=== PATIENT | female | born 1960 | race Caucasian/White ===

== ENCOUNTER → 2017-02-21 | Outpatient (REF) | payer BC ==
[~2017-02-21] MED LIST: /TAMS4CA PO; CIPR500T89 PO; GLUC500T PO; LEVE1INJ5 SC; METF500T PO; OXYC-517 PO; PERC2.5T PO; SIMV20TA2 PO; ULTR50TA PO; VICT18IN SC; ZANTTAB PO; [UNRECOGNIZED DRUG - CODE] PO
== END ==
LOC: M SFHCLERA 11:36
PROVIDERS: ATTEND Physician Assistant
DX: K22.70 Barrett's esophagus without dysplasia (principal); E78.2 Mixed hyperlipidemia; Z53.8 Procedure and treatment not carried out for other reasons

== ENCOUNTER → 2017-03-15 | Outpatient (CLI) | payer BC ==
--- NOTE | 2017-03-15 10:23 | REPMRS ---
Patient History The patient states she has not had a clinical breast exam in over a year. Patient is postmenopausal. No known family history of cancer. Digital Woman Screen Mammo: March 15, 2017 - Exam #: [id number] Bilateral CC and MLO view(s) were taken. Technologist: Celestina Guadalupe, Technologist Prior study comparison: March 23, 2015, digital woman screen mammo performed at [facility]. June 13, 2013, digital woman screen mammo performed at [facility] to [facility]. FINDINGS: The breast tissue is heterogeneously dense. This may lower the sensitivity of mammography. There has been no change in the appearance of the mammogram from the prior studies. There is a moderate amount of residual fibroglandular tissue which is fairly symmetric. There is no interval development of dominant mass, areas of architectural distortion, or clustered microcalcification typical of malignancy. ASSESSMENT: BI-RADS/ACR category 1 mammogram. Negative. Recommendation Routine screening mammogram in 1 year (for women over age 40). This mammogram was interpreted with the aid of an FDA-approved computer-aided dectection system. Electronically Signed By: Sean Raya MD 03/15/17 1798
== END ==
LOC: M WHC 09:39
PROVIDERS: ATTEND Physician Assistant
DX: Z12.31 Encounter for screening mammogram for malignant neoplasm of breast (principal)

== ENCOUNTER → 2018-11-23 | Outpatient (REF) | payer BC ==
[~2018-11-23] MED LIST changes: -/TAMS4CA PO; +FLOM0.4C39 PO
[2018-11-28 14:34] LABS: HPV LOW VOL RFLX Positive (Negative)
== END ==
LOC: M LAB REF 13:40
PROVIDERS: ATTEND Advanced Practice Midwife
DX: Z12.4 Encounter for screening for malignant neoplasm of cervix (principal)
CPT/HCPCS: 87624; G0123

== ENCOUNTER → 2019-07-31 | Outpatient (REF) | payer BC ==
[~2019-07-31] MED LIST changes: +ZANT150T40 PO; -ZANTTAB PO
== END ==
LOC: M SFHCPLAZ 09:38
PROVIDERS: ATTEND Family Medicine
DX: E11.9 Type 2 diabetes mellitus without complications (principal); E78.5 Hyperlipidemia, unspecified

== ENCOUNTER → 2019-12-02 | Outpatient (REF) | payer BC ==
[2019-12-02 15:33] LABS: MALB URINE SIEMENS 24.2 MG/L; MAU/CREAT RATIO 12.2 MCG/MG (0.0-30.0)
[2019-12-02 17:14] LABS: HEMOGLOBIN A1c 8.2 %
== END ==
LOC: M SFHCPLAZ 11:15
PROVIDERS: ATTEND Family Medicine
DX: E11.9 Type 2 diabetes mellitus without complications (principal); E78.5 Hyperlipidemia, unspecified

== ENCOUNTER 2021-08-03 20:02 | Emergency (ER) | payer BC, SELFPAY ==
[~2021-08-03] VITALS: Ht 160 cm; Wt 76.4 kg
[2021-08-03 21:44] LABS: VENOUS BASE EXCESS 3.5 (-2.0-2.0); VENOUS HCO3 28.9 MEQ/L (23.0-27.0); VENOUS O2 SATURATION 78.1 % (60.0-80.0); VENOUS PARTIAL PRESSURE CO2 46.5 mmHg (38.0-50.0); VENOUS PARTIAL PRESSURE O2 41.7 mmHg (30.0-50.0); VENOUS PH 7.411 UNITS (7.330-7.430); VENOUS STANDARD HCO3 27.1 MEQ/L; VENOUS TOTAL CO2 30.3 MEQ/L (24.0-28.0)
[2021-08-03 21:49] LABS: BASO # 0.1 10^3/uL (0.0-0.2); BASO % 0.8 % (0.0-1.0); EOS # 0.1 10^3/uL (0.0-0.5); EOS % 1.5 % (0.0-3.0); HEMATOCRIT 41.8 % (36.0-47.0); HEMOGLOBIN 13.4 g/dl (12.0-15.5); LYMPH # 2.6 10^3/uL (1.5-5.0); LYMPH % 30.8 % (24.0-44.0); MEAN CORPUSCULAR HEMOGLOBIN 28.1 pg (27.0-33.0); MEAN CORPUSCULAR HGB CONC 32.1 g/dl (32.0-36.5); MEAN CORPUSCULAR VOLUME 87.6 fl (80.0-96.0); MONO # 0.6 10^3/uL (0.0-0.8); MONO % 6.5 % (2.0-8.0); NEUTROPHILS # 5.1 10^3/uL (1.5-8.5); PLATELET COUNT, AUTOMATED 303 10^3/uL (150-450); RED BLOOD COUNT 4.77 10^6/uL (4.00-5.40); WHITE BLOOD COUNT 8.6 10^3/uL (4.0-10.0)
[2021-08-03 22:13] LABS: ACETONE/KETONE 0.86 MG/DL (<2.81); ALBUMIN 3.3 GM/DL (3.2-5.2); ALT/SGPT 27 U/L (12-78); BILIRUBIN,DIRECT < 0.1 MG/DL (0.0-0.2); BILIRUBIN,TOTAL 0.3 MG/DL (0.2-1.0); BLOOD UREA NITROGEN 13 MG/DL (7-18); CARBON DIOXIDE LEVEL 30 MEQ/L (21-32); CHLORIDE LEVEL 107 MEQ/L (98-107); CREATININE FOR GFR 1.21 MG/DL (0.55-1.30); GLOMERULAR FILTRATION RATE 48.2 (>45); GLUCOSE, FASTING 185 MG/DL (70-100); LIPASE 300 U/L (73-393); POTASSIUM SERUM 4.3 MEQ/L (3.5-5.1); SODIUM LEVEL 140 MEQ/L (136-145); TOTAL PROTEIN 7.4 GM/DL (6.4-8.2)
[2021-08-03 22:16] LABS: HEMOGLOBIN A1c 8.3 %
[2021-08-03 22:18] LABS: OSMOLALITY SERUM 299 MOSM/KG (280-301)
[2021-08-03 23:31] VITALS: BP 123/74
[2021-08-04 00:21] LABS: CK-MB VALUE MASS < 1.0 NG/ML (<3.6); CPK CREATINE PHOSPHOKINASE 84 U/L (26-192); MB/CK RELATIVE INDEX 1.19 (< OR =4)
[2021-08-04] MEDS ORDERED: ONDANSETRON 4MG/2ML VIAL IV ONE (02:00)
[2021-08-04] MEDS ORDERED: NS 1,000 ML IV ONE (02:00)
[2021-08-04] MEDS ORDERED: MORPHINE 4 MG/ML 1ML VIAL/SYRINGE (J2270) IV ONE (02:00)
[2021-08-04] MEDS ORDERED: ISOVUE-370 76% 100ML VIAL As Ordered ONE (02:05)
== END 2021-08-04 03:30 | disposition home or self-care (01) ==
LOC: M ED 20:02
DX: E11.65 Type 2 diabetes mellitus with hyperglycemia (principal); N20.0 Calculus of kidney; K52.9 Noninfective gastroenteritis and colitis, unspecified; R10.13 Epigastric pain; R11.2 Nausea with vomiting, unspecified; K76.0 Fatty (change of) liver, not elsewhere classified; J98.11 Atelectasis; R59.0 Localized enlarged lymph nodes; Z79.899 Other long term (current) drug therapy
CPT/HCPCS: 74021; 74177; 80048; 80076; 82010; 82550; 82553; 82803; 83036; 83690; 83930; 84484; 85025; 93005; 96361; 96374; 96375; 99284; J2270; J2405; Q9967

== ENCOUNTER → 2021-09-27 | Outpatient (CLI) | payer BC ==
[2021-09-27 14:55] LABS: BASO # 0.1 10^3/uL (0.0-0.2); BASO % 0.9 % (0.0-1.0); EOS # 0.2 10^3/uL (0.0-0.5); EOS % 2.4 % (0.0-3.0); HEMATOCRIT 42.6 % (36.0-47.0); HEMOGLOBIN 13.7 g/dl (12.0-15.5); LYMPH # 1.9 10^3/uL (1.5-5.0); LYMPH % 28.8 % (24.0-44.0); MEAN CORPUSCULAR HEMOGLOBIN 28.5 pg (27.0-33.0); MEAN CORPUSCULAR HGB CONC 32.2 g/dl (32.0-36.5); MEAN CORPUSCULAR VOLUME 88.6 fl (80.0-96.0); MONO # 0.5 10^3/uL (0.0-0.8); MONO % 7.1 % (2.0-8.0); NEUTROPHILS % 60.3 % (36.0-66.0); PLATELET COUNT, AUTOMATED 283 10^3/uL (150-450); RED BLOOD COUNT 4.81 10^6/uL (4.00-5.40); WHITE BLOOD COUNT 6.6 10^3/uL (4.0-10.0)
[2021-09-27 15:08] LABS: ALBUMIN 3.6 GM/DL (3.2-5.2); ALT/SGPT 25 U/L (12-78); BILIRUBIN,TOTAL 0.4 MG/DL (0.2-1.0); BLOOD UREA NITROGEN 15 MG/DL (7-18); CALCIUM LEVEL 9.7 MG/DL (8.8-10.2); CARBON DIOXIDE LEVEL 28 MEQ/L (21-32); CHLORIDE LEVEL 107 MEQ/L (98-107); CHOLESTEROL LEVEL 292 MG/DL (<200); CHOLESTEROL RISK RATIO 3.476 (<5); CREATININE FOR GFR 0.78 MG/DL (0.55-1.30); FREE T4 0.88 NG/DL (0.76-1.46); GLOMERULAR FILTRATION RATE > 60.0 (>45); GLUCOSE, FASTING 158 MG/DL (70-100); HDL CHOLESTEROL 84 MG/DL (>40); LDL CHOLESTEROL 191 MG/DL (<100); NON-HDL-C 208 MG/DL; POTASSIUM SERUM 4.1 MEQ/L (3.5-5.1); SODIUM LEVEL 141 MEQ/L (136-145); TOTAL PROTEIN 7.7 GM/DL (6.4-8.2); TRIGLYCERIDES LEVEL 84 MG/DL (<150)
== END ==
LOC: M PLALAB 10:28
PROVIDERS: ATTEND Physician Assistant
DX: E11.9 Type 2 diabetes mellitus without complications (principal); I10 Essential (primary) hypertension; Z13.220 Encounter for screening for lipoid disorders; R53.83 Other fatigue

== ENCOUNTER → 2021-09-27 | Outpatient (CLI) | payer BC ==
[2021-09-27 14:58] LABS: BASO % 0.6 % (0.0-1.0); EOS # 0.1 10^3/uL (0.0-0.5); EOS % 2.2 % (0.0-3.0); HEMATOCRIT 42.7 % (36.0-47.0); HEMOGLOBIN 13.8 g/dl (12.0-15.5); LYMPH # 1.8 10^3/uL (1.5-5.0); LYMPH % 28.1 % (24.0-44.0); MEAN CORPUSCULAR HEMOGLOBIN 28.7 pg (27.0-33.0); MEAN CORPUSCULAR HGB CONC 32.3 g/dl (32.0-36.5); MEAN CORPUSCULAR VOLUME 88.8 fl (80.0-96.0); MONO # 0.5 10^3/uL (0.0-0.8); MONO % 7.8 % (2.0-8.0); NEUTROPHILS # 3.9 10^3/uL (1.5-8.5); NEUTROPHILS % 60.8 % (36.0-66.0); PLATELET COUNT, AUTOMATED 290 10^3/uL (150-450); RED BLOOD COUNT 4.81 10^6/uL (4.00-5.40); WHITE BLOOD COUNT 6.4 10^3/uL (4.0-10.0)
[2021-09-27 15:02] LABS: MALB URINE SIEMENS 35.9 MG/L; MAU/CREAT RATIO 24.5 MCG/MG (0.0-30.0)
[2021-09-27 15:20] LABS: ALBUMIN 3.5 GM/DL (3.2-5.2); ALT/SGPT 23 U/L (12-78); BILIRUBIN,TOTAL 0.4 MG/DL (0.2-1.0); BLOOD UREA NITROGEN 15 MG/DL (7-18); CALCIUM LEVEL 9.8 MG/DL (8.8-10.2); CARBON DIOXIDE LEVEL 27 MEQ/L (21-32); CHLORIDE LEVEL 106 MEQ/L (98-107); CHOLESTEROL LEVEL 295 MG/DL (<200); CHOLESTEROL RISK RATIO 3.597 (<5); CREATININE FOR GFR 0.81 MG/DL (0.55-1.30); GLOMERULAR FILTRATION RATE > 60.0 (>45); GLUCOSE, FASTING 160 MG/DL (70-100); HDL CHOLESTEROL 82 MG/DL (>40); LDL CHOLESTEROL 195 MG/DL (<100); NON-HDL-C 213 MG/DL; POTASSIUM SERUM 4.1 MEQ/L (3.5-5.1); SODIUM LEVEL 139 MEQ/L (136-145); TOTAL PROTEIN 7.5 GM/DL (6.4-8.2); TRIGLYCERIDES LEVEL 88 MG/DL (<150)
[2021-09-27 15:47] LABS: TOTAL 25(OH) VITAMIN D 12.3 NG/ML (30.0-100.0)
[2021-09-27 15:53] LABS: HEMOGLOBIN A1c 8.2 %
== END ==
LOC: M PLALAB 10:31
PROVIDERS: ATTEND Physician Assistant
DX: E11.65 Type 2 diabetes mellitus with hyperglycemia (principal); Z79.4 Long term (current) use of insulin; E55.9 Vitamin D deficiency, unspecified

== ENCOUNTER → 2021-11-03 | Outpatient (CLI) | payer BC | LOC: M WHC 15:35 | PROVIDERS: ATTEND Specialist | DX: Z12.31 Encounter for screening mammogram for malignant neoplasm of breast (principal) ==

== ENCOUNTER → 2022-02-24 | Outpatient (CLI) | payer BC ==
[~2022-02-24] MED LIST changes: +HYDR12CA; +OMEP40CA5
== END ==
LOC: M LABSMTC 10:47
PROVIDERS: ATTEND Anesthesiology
DX: Z01.818 Encounter for other preprocedural examination (principal); Z11.52 Encounter for screening for COVID-19

== ENCOUNTER → 2022-03-29 | Outpatient (CLI) | payer BC ==
[~2022-03-29] MED LIST changes: -HYDR12CA; +HYDR12CA PO; -OMEP40CA5; +OMEP40CA5 PO; +TIRZ2.5P SQ
== END ==
LOC: M LABSMTC 11:25
PROVIDERS: ATTEND Anesthesiology
DX: Z01.812 Encounter for preprocedural laboratory examination (principal); Z11.52 Encounter for screening for COVID-19

== ENCOUNTER 2022-04-01 07:42 | Day surgery (SDC) | payer BC ==
[~2022-04-01] VITALS: Ht 160 cm; Wt 75.3 kg
[~2022-04-01 07:42] MED LIST changes: +LIDOCAINE 2% 100MG/5ML SDV (FOR ANES.) As Ordered ONE; +NS 1,000 ML IV ONE; +propofoL 200 MG/20 ML VIAL As Ordered ONE
[2022-04-01] MEDS ORDERED: NS 1,000 ML IV ONE (08:05)
[2022-04-01 09:13] VITALS: BP 122/72
== END 2022-04-01 09:17 | disposition home or self-care (01) ==
LOC: M OPP 07:42
PROVIDERS: ATTEND Internal Medicine Gastroenterology
DX: D12.4 Benign neoplasm of descending colon (principal); K64.8 Other hemorrhoids; K58.2 Mixed irritable bowel syndrome; K22.89 Other specified disease of esophagus; K22.70 Barrett's esophagus without dysplasia; K44.9 Diaphragmatic hernia without obstruction or gangrene; K31.84 Gastroparesis; Z87.891 Personal history of nicotine dependence; Z79.4 Long term (current) use of insulin; Z79.899 Other long term (current) drug therapy; E11.9 Type 2 diabetes mellitus without complications; E78.00 Pure hypercholesterolemia, unspecified

== ENCOUNTER → 2022-04-06 | Outpatient (CLI) | payer BC ==
[~2022-04-06] MED LIST changes: -LIDOCAINE 2% 100MG/5ML SDV (FOR ANES.) As Ordered ONE; -NS 1,000 ML IV ONE; -propofoL 200 MG/20 ML VIAL As Ordered ONE
[2022-04-06 13:35] LABS: BASO # 0.1 10^3/uL (0.0-0.2); BASO % 0.9 % (0.0-1.0); EOS # 0.1 10^3/uL (0.0-0.5); EOS % 1.8 % (0.0-3.0); HEMATOCRIT 45.1 % (36.0-47.0); HEMOGLOBIN 14.2 g/dl (12.0-15.5); LYMPH # 1.9 10^3/uL (1.5-5.0); LYMPH % 29.3 % (24.0-44.0); MEAN CORPUSCULAR HEMOGLOBIN 28.3 pg (27.0-33.0); MEAN CORPUSCULAR HGB CONC 31.5 g/dl (32.0-36.5); MONO # 0.4 10^3/uL (0.0-0.8); MONO % 6.4 % (2.0-8.0); NEUTROPHILS % 61.1 % (36.0-66.0); PLATELET COUNT, AUTOMATED 320 10^3/uL (150-450); RED BLOOD COUNT 5.01 10^6/uL (4.00-5.40); WHITE BLOOD COUNT 6.5 10^3/uL (4.0-10.0)
[2022-04-06 14:29] LABS: ALBUMIN 3.6 GM/DL (3.2-5.2); BILIRUBIN,TOTAL 0.5 MG/DL (0.2-1.0); CALCIUM LEVEL 8.9 MG/DL (8.8-10.2); CHOLESTEROL RISK RATIO 3.61 (<5); CREATININE FOR GFR 1.03 MG/DL (0.55-1.30); FREE T4 1.06 NG/DL (0.76-1.46); POTASSIUM SERUM 4.7 MEQ/L (3.5-5.1); THYROID STIMULATING HORMONE 1.5 uIU/ML (0.358-3.740); TOTAL PROTEIN 7.8 GM/DL (6.4-8.2)
== END ==
LOC: M WUC 10:25
PROVIDERS: ATTEND Physician Assistant
DX: E11.9 Type 2 diabetes mellitus without complications (principal); I10 Essential (primary) hypertension; Z13.220 Encounter for screening for lipoid disorders; R53.83 Other fatigue

== ENCOUNTER → 2022-06-02 | Outpatient (CLI) | payer BC ==
[~2022-06-02] MED LIST changes: +CYCL5TAB; +ROSU10TA6 PO
== END ==
LOC: M LABSMTC 10:34
PROVIDERS: ATTEND Anesthesiology
DX: Z01.812 Encounter for preprocedural laboratory examination (principal); Z20.822 Contact with and (suspected) exposure to COVID-19

== ENCOUNTER 2022-06-07 12:20 | Day surgery (SDC) | payer BC ==
[~2022-06-07] VITALS: Ht 160 cm; Wt 72.6 kg
[~2022-06-07 12:20] MED LIST changes: +NS 1,000 ML IV ONE
[2022-06-07] MEDS ORDERED: propofoL 200 MG/20 ML VIAL As Ordered ONE (12:43)
[2022-06-07] MEDS ORDERED: GLYCOPYRROLATE INJ 0.2 MG/ML 2 ML VIAL As Ordered ONE (12:43)
[2022-06-07] MEDS ORDERED: LIDOCAINE 2% 100MG/5ML SDV (FOR ANES.) As Ordered ONE (12:43)
[2022-06-07 14:42] VITALS: BP 134/68
== END 2022-06-07 14:44 | disposition home or self-care (01) ==
LOC: M OPP 12:20
PROVIDERS: ATTEND Internal Medicine Gastroenterology
DX: K22.70 Barrett's esophagus without dysplasia (principal); K22.89 Other specified disease of esophagus; K44.9 Diaphragmatic hernia without obstruction or gangrene; K92.2 Gastrointestinal hemorrhage, unspecified; E78.5 Hyperlipidemia, unspecified; E11.9 Type 2 diabetes mellitus without complications; K21.9 Gastro-esophageal reflux disease without esophagitis; Z79.4 Long term (current) use of insulin; Z79.899 Other long term (current) drug therapy

== ENCOUNTER → 2022-07-05 | Outpatient (CLI) | payer BC ==
[~2022-07-05] MED LIST changes: -NS 1,000 ML IV ONE; +TIRZ7.5P
== END ==
LOC: M LABSMTC 09:14
PROVIDERS: ATTEND Internal Medicine Gastroenterology
DX: Z01.812 Encounter for preprocedural laboratory examination (principal); Z11.52 Encounter for screening for COVID-19

== ENCOUNTER 2022-07-08 10:07 | Day surgery (SDC) | payer BC ==
[~2022-07-08] VITALS: Ht 160 cm; Wt 71.7 kg
[~2022-07-08 10:07] MED LIST changes: +NS 1,000 ML IV ONE
[2022-07-08] MEDS ORDERED: propofoL 200 MG/20 ML VIAL As Ordered ONE ×2 (11:50→11:51)
[2022-07-08] MEDS ORDERED: LIDOCAINE 2% 100MG/5ML SDV (FOR ANES.) As Ordered ONE (11:50)
[2022-07-08 12:35] VITALS: BP 122/76
== END 2022-07-08 12:40 | disposition home or self-care (01) ==
LOC: M OPP 10:07
PROVIDERS: ATTEND Internal Medicine Gastroenterology
DX: K22.710 Barrett's esophagus with low grade dysplasia (principal); E11.9 Type 2 diabetes mellitus without complications; E78.00 Pure hypercholesterolemia, unspecified; Z79.02 Long term (current) use of antithrombotics/antiplatelets; Z79.4 Long term (current) use of insulin; Z79.899 Other long term (current) drug therapy

== ENCOUNTER → 2022-09-01 | Outpatient (CLI) | payer BC ==
[~2022-09-01] MED LIST changes: +INSU100I6 SC; -LEVE1INJ5 SC; -NS 1,000 ML IV ONE
[2022-09-01 14:44] LABS: ALBUMIN 3.6 G/DL (3.2-5.2); ALKALINE PHOSPHATASE 115 U/L (46-116); ALT/SGPT 19 U/L (7.0-40); AST/SGOT 15 U/L (<34); BILIRUBIN,TOTAL 0.5 MG/DL (0.3-1.2); BLOOD UREA NITROGEN 17 MG/DL (9-23); CALCIUM LEVEL 8.8 MG/DL (8.3-10.6); CARBON DIOXIDE LEVEL 29 MMOL/L (20-31); CHLORIDE LEVEL 106 MMOL/L (98-107); CHOLESTEROL LEVEL 252 MG/DL (<200); CHOLESTEROL RISK RATIO 3.48 (<5); CREATININE FOR GFR 0.94 MG/DL (0.55-1.30); GLOMERULAR FILTRATION RATE > 60.0 (>45); GLUCOSE, FASTING 86 MG/DL (74-106); HDL CHOLESTEROL 72.4 MG/DL (>40); LDL CHOLESTEROL 165.8 MG/DL (<100); NON-HDL-C 179.6 MG/DL; POTASSIUM SERUM 4.5 MMOL/L (3.5-5.1); SODIUM LEVEL 141 MMOL/L (136-145); TOTAL PROTEIN 7.4 G/DL (5.7-8.2); TRIGLYCERIDES LEVEL 69 MG/DL (<150)
[2022-09-01 14:49] LABS: HEMATOCRIT 44.2 % (36.0-47.0); MEAN CORPUSCULAR HEMOGLOBIN 28.4 pg (27.0-33.0); MEAN CORPUSCULAR HGB CONC 31.7 g/dl (32.0-36.5); MEAN CORPUSCULAR VOLUME 89.7 fl (80.0-96.0); PLATELET COUNT, AUTOMATED 278 10^3/uL (150-450); RED BLOOD COUNT 4.93 10^6/uL (4.00-5.40); WHITE BLOOD COUNT 7.6 10^3/uL (4.0-10.0)
[2022-09-01 15:36] LABS: HEMOGLOBIN A1c 6.1 % (4.0-6.0)
== END ==
LOC: M PLALAB 11:28
PROVIDERS: ATTEND Physician Assistant
DX: E11.9 Type 2 diabetes mellitus without complications (principal); I10 Essential (primary) hypertension; E78.5 Hyperlipidemia, unspecified

== ENCOUNTER → 2022-09-14 | Outpatient (CLI) | payer BC | LOC: M RAD 14:58 | PROVIDERS: ATTEND Urology | DX: N20.0 Calculus of kidney (principal) ==

== ENCOUNTER → 2023-05-27 | Outpatient (CLI) | payer BC | LOC: M SLEEP 20:00 | PROVIDERS: ATTEND Physician Assistant | DX: R40.0 Somnolence (principal); R06.83 Snoring ==

== ENCOUNTER 2024-01-12 13:31 | Day surgery (SDC) | payer BC ==
[~2024-01-12] VITALS: Ht 160 cm; Wt 67.6 kg
[~2024-01-12 13:31] MED LIST changes: +INSU100I48 SQ; -ROSU10TA6 PO; +ROSU10TA61 PO; +ROSU20TA61 PO; +TIRZ15PE SC
[2024-01-12] MEDS: NS 1,000 ML IV ONE (14:25)
[2024-01-12 16:26] VITALS: TEMP 97
[2024-01-12 16:45] VITALS: BP 169/86; O2SAT 99
== END 2024-01-12 16:59 | disposition home or self-care (01) ==
LOC: M OPP 13:31
PROVIDERS: ATTEND Internal Medicine Gastroenterology
DX: K22.710 Barrett's esophagus with low grade dysplasia (principal); E11.9 Type 2 diabetes mellitus without complications; Z79.02 Long term (current) use of antithrombotics/antiplatelets; Z79.85 Long-term (current) use of injectable non-insulin antidiabetic drugs; Z79.899 Other long term (current) drug therapy

== ENCOUNTER → 2024-03-04 | Outpatient (CLI) | payer BC ==
[~2024-03-04] MED LIST changes: -ROSU20TA61 PO; +ROSU20TA86 PO
[2024-03-04 14:56] LABS: ALBUMIN 3.4 G/DL (3.2-5.2); BILIRUBIN,TOTAL 0.6 MG/DL (0.3-1.2); CALCIUM LEVEL 9.5 MG/DL (8.3-10.6); CHOLESTEROL RISK RATIO 3.86 (<5); CREATININE FOR GFR 1.05 MG/DL (0.55-1.30); GLOMERULAR FILTRATION RATE 56.3 (>45); HDL CHOLESTEROL 67.3 MG/DL (>40); LDL CHOLESTEROL 176.5 MG/DL (<100); NON-HDL-C 192.7 MG/DL; POTASSIUM SERUM 4.3 MMOL/L (3.5-5.1); TOTAL PROTEIN 7.4 G/DL (5.7-8.2)
[2024-03-04 15:01] LABS: FREE T4 1.27 NG/DL (0.89-1.76); THYROID STIMULATING HORMONE 1.938 uIU/ML (0.55-4.78)
[2024-03-04 15:21] LABS: HEMATOCRIT 41.5 % (36.0-47.0); HEMOGLOBIN 13.3 g/dl (12.0-15.5); MEAN CORPUSCULAR HEMOGLOBIN 29.2 pg (27.0-33.0); PLATELET COUNT, AUTOMATED 263 10^3/uL (150-450); RED BLOOD COUNT 4.56 10^6/uL (4.00-5.40); WHITE BLOOD COUNT 4.9 10^3/uL (4.0-10.0)
[2024-03-04 15:37] LABS: HEMOGLOBIN A1c 5.6 % (4.0-6.0)
== END ==
LOC: M PLALAB 09:44
PROVIDERS: ATTEND Nurse Practitioner Adult Health
DX: I10 Essential (primary) hypertension (principal); E78.5 Hyperlipidemia, unspecified; E11.9 Type 2 diabetes mellitus without complications; R53.83 Other fatigue

== ENCOUNTER 2024-05-16 10:57 | Day surgery (SDC) | payer BC ==
[~2024-05-16] VITALS: Ht 160 cm; Wt 69.6 kg
[~2024-05-16 10:57] MED LIST changes: -CYCL5TAB; +CYCL5TAB4; +NS 250 ML IV ONE; +SERT25TA21 PO
[2024-05-16] MEDS ORDERED: propofoL 500 MG/50 ML VIAL As Ordered ONE (12:11)
[2024-05-16] MEDS ORDERED: LIDOCAINE 2% 100MG/5ML SDV (FOR ANES.) As Ordered ONE (12:11)
[2024-05-16] MEDS ORDERED: fentaNYL 100 MCG/2 ML INJECTION As Ordered ONE (12:11)
[2024-05-16] MEDS ORDERED: PHENYLephrine 500MCG 5ML (100MCG/ML) SYRINGE As Ordered ONE (12:17)
[2024-05-16 12:22] VITALS: TEMP 97.4
[2024-05-16 12:45] VITALS: BP 119/68; O2SAT 96
== END 2024-05-16 12:48 | disposition home or self-care (01) ==
LOC: M OPP 10:57
PROVIDERS: ATTEND Internal Medicine Gastroenterology
DX: K22.89 Other specified disease of esophagus (principal); E78.5 Hyperlipidemia, unspecified; E11.9 Type 2 diabetes mellitus without complications; K21.9 Gastro-esophageal reflux disease without esophagitis; F41.9 Anxiety disorder, unspecified; K31.84 Gastroparesis; Z79.4 Long term (current) use of insulin; Z79.85 Long-term (current) use of injectable non-insulin antidiabetic drugs; Z79.899 Other long term (current) drug therapy
CPT/HCPCS: 43239; 88305; J2371; J3010

== ENCOUNTER → 2025-05-06 | Outpatient (CLI) | payer BC ==
[~2025-05-06] MED LIST changes: +ATOR1TAB19 PO; +HYDR12.510 PO; -HYDR12CA PO; -NS 250 ML IV ONE; -ROSU10TA61 PO; +ROSU10TA90 PO; +SERT50TA29 PO
== END ==
LOC: M WUC 10:28
DX: R05.1 Acute cough (principal)